=== PATIENT | male | born 1975 | race Two or more races ===

== ENCOUNTER 2025-09-21 10:52 | Inpatient (IN) | payer OTHER ==
[~2025-09-21] VITALS: Ht 177.8 cm; Wt 95.3 kg
[2025-09-21 11:48] LABS: URINE APPEARANCE Clear; URINE BILIRRUBIN Negative (NEGATIVE); URINE BLOOD NHT; URINE COLOR Dark Yellow; URINE GLUCOSE Negative (NEGATIVE); URINE KETONE Trace (NEGATIVE); URINE LEUKOCYTE Negative; URINE NITRATE Negative; URINE PROTEIN Trace (NEGATIVE); URINE UROBILINOGEN 1.0 E.U./dl
[2025-09-21 11:52] LABS: ALT/SGPT 41.0 U/L (12-78); AST/SGOT 28.0 U/L (15-37); BILIRUBIN TOTAL 0.47 mg/dL (0.3-1.2); BUN CREA RATIO 12.0 (7.0-25.0); CREATININE SERUM 0.92 mg/dL (0.70-1.30); GFR 87.81; GLOBULINA 4.4 G/DL (2.4-3.5); GLUCOSE FASTING 134.0 mg/dL (65-100); OSMOLALITY SERUM 283.0 MOSM/KG (275-295)
[2025-09-21 11:52] LABS: URINE BACTERIA 50.3 uL (0.0-1933); URINE EPITHELIAL CELLS 12.5 uL (0.0-38.8); URINE RBC 38.2 uL (0.0-20.8); URINE WBC 6.8 uL (0.0-23.2)
[2025-09-21 11:54] LABS: BASO % 0.3 % (0.1-1.2); EOS # 0.00 (0.04-0.54); EOS % 0.0 % (0.7-7.0); LYMPH # 0.88 (1.18-3.74); LYMPH % 6.6 % (19.3-53.1); MEAN PLATELET VOLUME 9.50 fl (9.4-12.4); MONO # 0.32 (0.24-0.82); MONO % 2.4 % (4.7-12.5); NEUT # 12.01 (1.56-6.13); NEUT % 90.4 % (34.0-71.1); RED CELL DISTRIBUTION WIDTH 11.9 % (11.6-14.4)
[2025-09-21 12:08] LABS: URINE CAST 0.84 uL (0.0-1.40)
[2025-09-21] MEDS ORDERED: CEFTRIAXONE SODIUM 2,000 MG VIAL IV STA (15:21)
[2025-09-21] MEDS ORDERED: METRONIDAZOLE/SODIUM CHLORIDE 500 MG/100 ML PIGGYBACK IV STA (15:24)
[2025-09-21] MEDS ORDERED: CEFTRIAXONE SODIUM 2,000 MG VIAL ONE (15:25)
[2025-09-21] MEDS ORDERED: METRONIDAZOLE/SODIUM CHLORIDE 500 MG/100 ML PIGGYBACK IV ONE (15:25)
[2025-09-21 17:19] VITALS: BP 140/80
[2025-09-21] MEDS ORDERED: CIPROFLOXACIN HCL 500 MG TABLET PO SCH (17:44)
[2025-09-21] MEDS ORDERED: MORPHINE SULFATE 2 MG/ML SYRINGE IV PRN (17:45)
[2025-09-21] MEDS ORDERED: 0.9 % SODIUM CHLORIDE 1,000 ML IV SCH (17:45)
[2025-09-21] MEDS ORDERED: CIPROFLOXACIN IN 5 % DEXTROSE 400 MG/200 ML PIGGYBAG IV ONE (17:59)
[2025-09-22 05:49] VITALS: BP 120/68; O2SAT 96
[2025-09-22 07:57] LABS: BASO % 0.5 % (0.1-1.2); EOS # 0.17 (0.04-0.54); EOS % 2.1 % (0.7-7.0); LYMPH # 2.13 (1.18-3.74); LYMPH % 26.9 % (19.3-53.1); MEAN PLATELET VOLUME 9.60 fl (9.4-12.4); MONO # 0.80 (0.24-0.82); MONO % 10.1 % (4.7-12.5); NEUT # 4.71 (1.56-6.13); NEUT % 59.5 % (34.0-71.1); RED CELL DISTRIBUTION WIDTH 11.9 % (11.6-14.4)
[2025-09-22 08:19] LABS: INR 1.06
[2025-09-22 08:45] LABS: BUN CREA RATIO 11.0 (7.0-25.0); CREATININE SERUM 0.75 mg/dL (0.70-1.30); GFR 111.15; GLUCOSE FASTING 89.0 mg/dL (65-100); OSMOLALITY SERUM 283.0 MOSM/KG (275-295)
[2025-09-22] MEDS ORDERED: FAMOTIDINE/PF 20 MG in 0.9 % SODIUM CHLORIDE 100 ML IV SCH (09:00)
[2025-09-22] MEDS ORDERED: MORPHINE SULFATE 4 MG/ML VIAL IV PRN (10:30)
[2025-09-22 11:33] VITALS: BP 124/79; O2SAT 97
[2025-09-22] MEDS ORDERED: BUPIVACAINE HCL/MPF 0.5% 30ML VIAL ONE (15:13)
[2025-09-22] MEDS ORDERED: LIDOCAINE HCL 1%/EPINEPHRINE 20ML VIAL IJ ONE (15:13)
[2025-09-22] MEDS ORDERED: SUGAMMADEX SODIUM 200 MG/2 ML VIAL IV ONE (17:08)
[2025-09-22 22:47] VITALS: BP 148/85
[2025-09-23 03:02] VITALS: BP 133/79; O2SAT 94
[2025-09-23 09:43] VITALS: BP 143/80; O2SAT 98
[2025-09-23 20:03] VITALS: BP 133/89
[2025-09-24 03:02] VITALS: BP 150/63; O2SAT 95
== END 2025-09-24 13:00 | disposition home or self-care (01) | DRG 419 ==
LOC: ER 10:52 → MEDJ 18:38
PROVIDERS: General Practice; Surgery; ADMIT Student in an Organized Health Care Education/Training Program; ATTEND Student in an Organized Health Care Education/Training Program
PROC: BW40ZZZ Ultrasonography of Abdomen (ICD-10-PCS; 2025-09-21)
PROC: BW21ZZZ Computerized Tomography (CT Scan) of Abdomen and Pelvis (ICD-10-PCS; 2025-09-21)
PROC: 0FT44ZZ Resection of Gallbladder, Percutaneous Endoscopic Approach (ICD-10-PCS; principal; 2025-09-22 15:00)
DX: K80.10 Calculus of gallbladder with chronic cholecystitis without obstruction (principal); D72.829 Elevated white blood cell count, unspecified